=== PATIENT | male | born 1980 ===

== ENCOUNTER 2024-03-09 21:34 | Emergency (ER) | payer MEDICAID, SELFPAY ==
--- NOTE | 2024-03-09 | ECG_ITS ---
Test Reason : TACHY Blood Pressure : / mmHG Vent. Rate : 118 BPM Atrial Rate : 118 BPM P-R Int : 140 ms QRS Dur : 080 ms QT Int : 284 ms P-R-T Axes : 040 002 023 degrees QTc Int : 398 ms Sinus tachycardia Otherwise normal ECG No previous ECGs available Referred By: Generic ED Physician Electronically Signed By:MAYUR NIELSEN MD
[2024-03-09 21:37] VITALS: BP 122/74; PULSE 121; RESP 19; TEMP 37.7; O2SAT 96; BMI 37.8
--- NOTE | 2024-03-09 22:16 | MHC.EDTECH ---
Delayed EKG, patient was not in the waiting room
[2024-03-10] VITALS: BP 98/81; PULSE 102; RESP 18; TEMP 36.6; O2SAT 97
[2024-03-10] MEDS: Cyclobenzaprine HCl 10 MG TABLET PO (01:53)
[2024-03-10] MEDS: Ketorolac Tromethamine 60 MG/2 ML VIAL IM (01:53)
--- NOTE | 2024-03-10 01:58 | ED.EXTPRO ---
HPI - Extremity Problem General Chief complaint: Extremity Problem Stated complaint: L leg pain, no injury Time Seen by Provider: 03/10/24 01:36 Source: patient Mode of arrival: ambulatory Limitations: no limitations History of Present Illness ED Provider: giuliana MARRERO Narrative: Patient has Been complaining of pain in the left leg and thigh area since earlier today no history of trauma or injury no fall no back pain no bladder or bowel involvement no paresthesia Related Data Previous Rx's ?Medication ?Instructions ?Recorded cyclobenzaprine 10 mg tablet 10 mg PO Q8H #20 tabs 03/10/24 oxycodone 5 mg tablet 5 mg PO Q6H PRN pain #20 tabs 03/10/24 Allergies Allergy/AdvReac Type Severity Reaction Status Date / Time No Known Allergies Allergy Verified 03/09/24 21:40 Review of Systems Review of Systems: Yes all other systems are reviewed and are negative [facility] Social History Social History Smoked in Last 30 Days: No Use of substances other than those prescribed or required for medical reasons: No Advance Directives: No Advance Directives Information Provided: Yes Do you have a plan to hurt others: No Plan Physical Exam Vital Signs: Vital Signs: Last Vital Signs Temp 97.9 F 03/10/24 00:00 Pulse 102 H 03/10/24 00:00 Resp 18 03/10/24 00:00 BP 98/81 03/10/24 00:00 Pulse Ox 97 03/10/24 00:00 O2 Del Method Room Air 03/10/24 00:00 BMI result Body Mass Index 37.8 Appearance: Alert. Oriented X3. No acute distress. Neck: Normal inspection. Neck supple. CVS: Normal heart rate and rhythm. Pulses normal. Respiratory: No respiratory distress. Equal air entry bilateral, no wheezing/rales/rhonchi Abdomen: Soft and nontender. Bowel sounds are present, no mass palpable, no CVA tenderness Skin: Skin warm and dry. Normal skin color. Normal skin turgor. Extremities: No lower extremity edema. No calf tenderness Tenderness at left sciatic notch SLR positive left leg 60 degrees no motor weakness Neuro: Oriented X 3. No motor deficit. No sensory deficit Medications Administered Discontinued Medications Generic Name Dose Route Start Last Admin Trade Name Freq PRN Reason Stop Dose Admin Cyclobenzaprine HCl 10 mg 03/10/24 01:45 03/10/24 01:53 Cyclobenzaprine Hcl 10 Mg Tablet PO 03/10/24 01:46 10 mg ONCE ONE Administration Ketorolac Tromethamine 60 mg 03/10/24 01:45 03/10/24 01:53 Ketorolac Tromethamine 60 Mg/2 Ml Vial IM 03/10/24 01:46 60 mg ONCE ONE Administration Medical Decision Making Medical Decision Making [facility] Narrative: Patient with left sciatica will prescribe pain medicine muscle relaxant no signs of spinal cord injury Discharge Plan Discharge Clinical Impression: Sciatica, left side Patient Disposition: Home, Self-Care Instructions: Sciatica (ED) Additional Instructions: Rest at home Take pain medication muscle relaxant as prescribed Follow the PCP if not better Prescriptions: New cyclobenzaprine 10 mg tablet 10 mg PO Q8H Qty: 20 0RF oxycodone 5 mg tablet 5 mg PO Q6H PRN (Reason: pain) Qty: 20 0RF Rx Instructions: Partial Fill upon patient request. Interventions: ED Discharge Assessment Last Done: 03/10/24 01:59 Print Language: Faroese
[2024-03-10 01:59] VITALS: BP 98/81; PULSE 102; RESP 18; TEMP 36.6; O2SAT 97
== END 2024-03-10 02:00 | disposition home or self-care (01) ==
PROVIDERS: Emergency Provider Internal Medicine
DX: M54.32 Sciatica, left side (principal); R00.0 Tachycardia, unspecified
CPT/HCPCS: 93005; 96372; 99284; J1885

== ENCOUNTER → 2024-03-09 22:10 | Outpatient (BNV) | payer MEDICAID, SELFPAY | PROVIDERS: Emergency Provider Internal Medicine; Visit Provider Internal Medicine Cardiovascular Disease | DX: R00.0 Tachycardia, unspecified (principal) | CPT/HCPCS: 93010 ==